=== PATIENT | female | born 1975 | race Caucasian/White ===

== ENCOUNTER 2025-01-28 08:55 | Day surgery (SDC) | payer MEDICAID, SELFPAY ==
--- NOTE | 2025-01-22 10:36 | EKG_ITS ---
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
[2025-01-22 10:42] VITALS: BMI 31.8
[2025-01-22 11:32] LABS: Collection Type, Urine Clean Catch
[2025-01-22 11:46] LABS: Basophils # (Auto) 0.1 Thou/mm3 (0.0-0.2); Basophils % (Auto) 2 % (0-2.5); Eosinophils # (Auto) 0.2 Thou/mm3 (0.0-0.5); Eosinophils % (Auto) 3 % (0-10); Hematocrit 32.7 % (36.0-46.0); Hemoglobin 9.9 g/dL (12.0-16.0); Immature Granulocytes Auto 0.02 Thou/mm3 (0.00-0.00); Lymphocytes # (Auto) 1.1 Thou/mm3 (1.0-4.8); Lymphocytes % (Auto) 20 % (10-50); Mean Corpuscular HGB Conc 30.3 g/dl (31.0-37.0); Mean Corpuscular Hemoglobin 26.1 pg (25.0-35.0); Mean Corpuscular Volume 86 fL (80-100); Monocytes # (Auto) 0.6 Thou/mm3 (0.0-0.8); Monocytes % (Auto) 11 % (0-12); Neutrophils # (Auto) 3.4 Thou/mm3 (1.8-7.7); Neutrophils % (Auto) 64 % (37-80); Nucleated Red Blood Cell # 0.00 Thou/mm3 (0.00-0.00); Nucleated Red Blood Cell % 0 /100 WBC (0); Platelet Count 306 Thou/mm3 (140-440); RDW Standard Deviation 41.9 fL (36.4-46.3); Red Blood Count 3.80 Miln/mm3 (4.00-5.20); White Blood Count 5.4 Thou/mm3 (3.6-11.0)
[2025-01-22 11:53] LABS: Partial Thromboplastin Time 27.3 Seconds (22.0-36.0)
[2025-01-22 11:58] LABS: Bilirubin,Urine Negative (Negative); Blood,Urine 3+ (Negative); Clarity,Urine Clear (Clear/Hazy); Color,Urine Yellow (Lt Yel-Yel); Glucose, Urine Negative (Negative); Ketones,Urine Negative (Negative); Leukocyte Esterase,Urine Negative (Negative); Nitrite,Urine Negative (Negative); PH,Urine 7.5 (5.0-7.0); Protein,Urine Trace (Neg - Trace); RBC,Urine 3 /hpf (0-3); Specific Gravity,Urine 1.022 (1.001-1.035); Squamous Epithelial Cell,Urine 2 /hpf (0-5); Urobilinogen,Urine Negative mg/dL (0.0-1.0); WBC,Urine 4 /hpf (0-5)
[2025-01-22 12:00] LABS: Alanine Aminotransferase 47 U/L (10-49); Albumin, Serum 4.4 gm/dL (3.5-5.0); Albumin/Globulin Ratio 1.9 (1.2-2.2); Anion Gap 5 (7-16); Aspartate Amino Transferase 35 U/L (0-34); BUN/Creatinine Ratio 19 Ratio (12-20); Bilirubin,Total 0.2 mg/dL (0.3-1.2); Blood Urea Nitrogen 15 mg/dL (9-23); Calcium 9.5 mg/dL (8.3-10.6); Calcium (Corrected) 9.5 mg/dL (8.5-10.1); Carbon Dioxide 28.2 mMol/L (20.0-31.0); Chloride 108 mMol/L (98-107); Creatinine (Component) 0.8 mg/dL (0.6-1.3); Estimated Creatinine Clearance 97.0 mL/min (>60); Globulin 2.3 gm/dL (2.3-3.5); Glucose 102 mg/dL (74-106); Osmolality,Calculated 282 (275-295); Potassium 4.6 mMol/L (3.4-5.1); Sodium 141 mMol/L (136-145); Total Protein 6.7 gm/dL (5.7-8.2); eGFR > 60 See Note
[2025-01-22 12:35] LABS: Alkaline Phosphatase 67 U/L (46-116)
[2025-01-28] VITALS (11 sets, daily range): BP systolic 119–151; BP diastolic 63–95; PULSE 72–97; RESP 17–20; TEMP 36.4–36.8; O2SAT 95–100; BMI 31.1
--- NOTE | 2025-01-28 09:43 | EKG_ITS ---
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
[2025-01-28] MEDS: ALBUTEROL RT 2.5 MG/3 ML NEBU INH (09:57)
--- NOTE | 2025-01-28 10:04 | SUR.PREOP ---
Patient expressed gratitude for prayer before their procedure.
--- NOTE | 2025-01-28 11:47 | SUR.PHASEI ---
pt arrived to PACU via gurney drowsy but arouses to voice, breathing unlabored, dressing to buttocks clean, dry, and intact with mesh underwear in place, report from Ena LOCO and Dr Caldera.
--- NOTE | 2025-01-28 12:17 | SUR.PHASEI ---
pt tolerating ice chips without difficulty swallowing or n/v
--- NOTE | 2025-01-28 12:23 | SUR.PHASEII ---
report to Anya Chand RN
--- NOTE | 2025-01-28 12:38 | PD.SUROPNT ---
Date of Procedure 01/28/25 Pre Op Diagnosis Extensive internal/external hemorrhoids and posterior fissure in ano Post Op Diagnosis Same. Procedure Extensive internal and external hemorrhoidectomy fissurectomy and lateral sphincterotomy on January 28, 2025 Findings This patient had extensive bleeding hemorrhoids at 3:00 9:00 and 11 o'clock position with deep posterior fissure in ano. Procedure Description The patient was interviewed in the preop area. Patient understanding of surgery was discussed and is ascertained that patient knows what procedure we are going to do. The risk benefits and alternatives of hemorrhoidectomy surgery were discussed in detail with the patient and informed consent is obtained. The risk includes risk of bleeding infection urinary retention possible long-term recurrence of the hemorrhoids and anesthesia related complications. The patient has done bowel prep as prescribed. Patient was taken to the operating room and laid supine on the operating room table. General anesthesia was administered satisfactorily. Patient is positioned in the lithotomy position on yellowfins. Perianal region is prepped and draped in usual manner. A timeout procedure was carried out. A dilute lidocaine with epinephrine is injected and pararectal and internal pudendal blocks were achieved bilaterally. Examination is carried out under anesthesia and shows that the patient has extensive hemorrhoids. The hemorrhoid at 3 o'clock position, 9 o'clock position and 11 o'clock position were removed. All hemorrhoids were removed by similar technique. For each hemorrhoid pedicles were ligated with 3-0 Vicryl sutures. After that a V-shaped incision was made around the external hemorrhoid and was dissected from the sphincter. The internal sphincter was identified and was protected. The hemorrhoid was removed as a specimen. The fissure was dissected and scar tissue was removed. After all this hemostasis is achieved. Significant amount of mucosa and the anal skin were left between the excisions in order to prevent the león deformity. The hemorrhoidal incisions were kept open for secondary healing. Dilute lidocaine solution is infiltrated again. Lidocaine with Silverdene cream is applied. A cigarette drain fashioned from a 4 x 4 gauze is placed in the anal canal. Sterile dressing is applied. Patient tolerated the procedure very well. Anesthesia GETA Drains None. Implants None. Pathology / specimen Other (Hemorrhoids at 3 9 and 11 o'clock position) Estimated Blood Loss 10 Condition Stable Disposition PACU Surgeon Jarerll Howell MD Surgical Staff Operation Date: 01/28/25 09:30 Case Staff Anesthesiologist: Doug Caldera RN bandage maker Khushbu surgical instruments inspector with surgical instruments inspector students
--- NOTE | 2025-01-28 13:28 | SUR.PHASEII ---
1328 Patient meets discharge criteria from recovery, awake and alert, breathing unlabored, vital signs stable, denies pain-states, It's just sore , dressing intact; no bleeding noted, drinking 7up; denies nausea, assisted with dressing into her clothing by this typewriter ribbon winder, discharge instructions given to patient and patients friends, Kamini her friend signed discharge instructions. Patient given all her belongings prior to discharge, transported via wheelchair and left in a private vehicle
== END 2025-01-28 13:28 | disposition home or self-care (01) ==
PROVIDERS: PCP Student in an Organized Health Care Education/Training Program; Referring Provider Specialist; Visit Provider Specialist
PROC: (CPT 46945; principal; 2025-01-28 09:15)
DX: K64.3 Fourth degree hemorrhoids (principal); K60.2 Anal fissure, unspecified; Z01.810 Encounter for preprocedural cardiovascular examination
CPT/HCPCS: 46945; 36415; 80053; 81001; 85025; 85730; 93005; A4649; J0131; J0690; J1100; J1885; J2250; J2405; J2704; J3010; J3490; A9270